=== PATIENT | male | born 1985 | race American Indian/Alaskan Native ===

== ENCOUNTER 2021-06-07 14:03 | Emergency (ER) | payer OTHER ==
[2021-06-07 17:02] VITALS: BP 122/68
[2021-06-07] MEDS ORDERED: IPRATROPIUM/ALBUTEROL SULFATE 3 ML AMPUL.NEB IH ONE (17:29)
[2021-06-07] MEDS ORDERED: methylPREDNISolone Sod Succinate 125 MG/2 ML INJ IV ONE (17:29)
--- NOTE | 2021-06-07 17:32 | Emergency Department Report ---
- General Chief Complaint: Dyspnea/Respdistress Stated Complaint: CHEST/THROAT TIGHTNESS Time Seen by Provider: 06/07/21 17:09 Source: patient Mode of arrival: Ambulatory Limitations: No Limitations - History of Present Illness Initial Comments: 36-year-old male with a history of tobacco use, GERD but no other significant past medical history presents to the ER today with complaints of cough and shortness of breath. Patient states that symptoms started last night. He describes a productive cough which seems to be worse when he exhales after taking a deep breath, he also reports associated shortness of breath, chest and throat tightness as well as wheezing. He reports rhinorrhea but no nasal congestion or sore throat. He denies any fever or chills. He denies history of pneumonia or bronchitis in the past. He denies any ill contacts or recent travel. He has not been vaccinated against COVID-19. MD Complaint: cough, nasal congestion, other (SOB, wheezing) -: Last night - Related Data Previous Rx's Medication Instructions Recorded Last Taken Type Albuterol Mdi (or & Nicu Only) 2 puff IH QID PRN #8.5 gram 06/07/21 Unknown Rx [ProAir HFA Inhaler] Benzonatate [Tessalon Perles] 100 mg PO Q8HR PRN #30 cap 06/07/21 Unknown Rx Cetirizine HCl [Zyrtec 10mg tab] 10 mg PO DAILY #30 06/07/21 Unknown Rx predniSONE [Deltasone] 50 mg PO QDAY #4 tab 06/07/21 Unknown Rx Allergies Allergy/AdvReac Type Severity Reaction Status Date / Time No Known Allergies Allergy Verified 06/07/21 17:49 ED Review of Systems ROS: Stated complaint: CHEST/THROAT TIGHTNESS Other details as noted in HPI Comment: All other systems reviewed and negative Constitutional: denies: chills, fever ENT: congestion Respiratory: cough, shortness of breath, wheezing Cardiovascular: other (Chest tightness). denies: chest pain, palpitations Gastrointestinal: denies: abdominal pain, nausea, diarrhea Genitourinary: denies: urgency, dysuria, frequency, hematuria, discharge, testicular pain, testicular mass Musculoskeletal: denies: back pain, joint swelling, arthralgia Skin: denies: rash, lesions, change in color, change in hair/nails, pruritus Neurological: denies: headache, weakness, numbness, paresthesias, confusion, abnormal gait, vertigo Psychiatric: denies: anxiety, depression, auditory hallucinations, visual hallucinations, homicidal thoughts, suicidal thoughts Hematological/Lymphatic: denies: easy bleeding, easy bruising, swollen glands ED Past Medical Hx - Social History Smoking Status: Current Every Day Smoker - Medications Home Medications: Home Medications Medication Instructions Recorded Confirmed Last Taken Type Albuterol Mdi (or & Nicu Only) 2 puff IH QID PRN #8.5 gram 06/07/21 Unknown Rx [ProAir HFA Inhaler] Benzonatate [Tessalon Perles] 100 mg PO Q8HR PRN #30 cap 06/07/21 Unknown Rx Cetirizine HCl [Zyrtec 10mg tab] 10 mg PO DAILY #30 06/07/21 Unknown Rx predniSONE [Deltasone] 50 mg PO QDAY #4 tab 06/07/21 Unknown Rx ED Physical Exam - General Limitations: No Limitations General appearance: alert, in no apparent distress - Head Head exam: Present: atraumatic, normocephalic, normal inspection - Eye Eye exam: Present: normal appearance, PERRL, EOMI Pupils: Present: normal accommodation - Neck Neck exam: Present: normal inspection, full ROM. Absent: meningismus - Respiratory Respiratory exam: Present: normal lung sounds bilaterally, wheezes (Diffuse expiratory wheezing), other (Intermittent coughing). Absent: respiratory distress, rales, rhonchi, stridor - Cardiovascular Cardiovascular Exam: Present: regular rate, normal rhythm, normal heart sounds - GI/Abdominal GI/Abdominal exam: Present: soft. Absent: distended, tenderness, guarding, rebound - Neurological Exam Neurological exam: Present: alert, oriented X3, CN II-XII intact, normal gait - Psychiatric Psychiatric exam: Present: normal affect, normal mood - Skin Skin exam: Present: intact ED Course Vital Signs 06/07/21 06/07/21 16:59 20:06 Temperature 98.6 F Pulse Rate 97 H 92 H Respiratory 18 17 Rate Blood Pressure 122/68 O2 Sat by Pulse 95 96 Oximetry ED Medical Decision Making - Radiology Data Radiology results: report reviewed Patient Name: MERCEDES PHILLIP Gender: Male Date of : 1985 Home Phone: Referring Provider: LACEY CASH Organization: [facility] Accession Number: [id number] Requested Date: June 07, 2021 17:29 Report Status: Final Requested Procedure: 1 Procedure Description: XR chest routine 2V Modality: XR Findings Reporting MD: Joaquín Corbin Dictation Time: June 07, 2021 16:52 [employer] Commerce Developer: Not available Teacher Hearing Impaired Date: CHEST 2 VIEWS INDICATION / CLINICAL INFORMATION: SOB/cough. COMPARISON: None available. FINDINGS: SUPPORT DEVICES: None. HEART / MEDIASTINUM: The heart size and pulmonary vasculature are normal. LUNGS / PLEURA: There is a small calcified granuloma in the left lung base. The lungs are otherwise clear. No pleural effusion. No pneumothorax. ADDITIONAL FINDINGS: No significant additional findings. IMPRESSION: No acute findings. Signer Name: Joaquín Corbin MD Signed: 06/07/2021 4:52 PM Workstation Name: [id number] - Medical Decision Making Patient reports feeling better after nebulizer treatment. His wheezing has improved after treatment. He is currently not in any respiratory distress. He is not toxic or ill-appearing. He is neurologically intact and his gait is normal. Repeat vital signs are stable. X-ray shows nothing acute. Discussed x-ray results with patient. Discussed suspected diagnosis with patient but recommends that he get outpatient COVID-19 test. Discussed treatment plan with patient. Patient expressed understanding for instructions and agree with plan. Patient was stable at time of discharge. - Differential Diagnosis Acute bronchitis, pneumonia, Covid Critical care attestation.: If time is entered above; I have spent that time in minutes in the direct care of this critically ill patient, excluding procedure time. ED Disposition Clinical Impression: Acute bronchitis Disposition: 01 HOME / SELF CARE / HOMELESS Is pt being admited?: No Does the pt Need Aspirin: No Condition: Stable Instructions: Acute Bronchitis, Adult, [id number], Acute Bronchitis (ED) Additional Instructions: I recommend that you get a COVID-19 test once at a local urgent care, pharmacy or drive-through clinic as this could be a cause of your symptoms. I recommend that you start the prednisone tomorrow, and use the albuterol MDI as prescribed. Take the Tessalon Perles to help with your cough and also the Zyrtec. Follow- up with your PCP. Return to the ER if your symptoms changes or worsens in any way. Prescriptions: predniSONE [Deltasone] 50 mg PO QDAY #4 tab Albuterol Mdi (or & Nicu Only) [ProAir HFA Inhaler] 2 puff IH QID PRN #8.5 gram PRN Reason: Shortness Of Breath Benzonatate [Tessalon Perles] 100 mg PO Q8HR PRN #30 cap PRN Reason: Cough Cetirizine HCl [Zyrtec 10mg tab] 10 mg PO DAILY #30 Referrals: RITIKA MAR MD [Staff Physician] - 3-5 Days Forms: Work/School Release Form(ED) Time of Disposition: 19:18
--- NOTE | 2021-06-07 23:53 | XRay Report ---
CHEST 2 VIEWS INDICATION / CLINICAL INFORMATION: SOB/cough. COMPARISON: None available. FINDINGS: SUPPORT DEVICES: None. HEART / MEDIASTINUM: The heart size and pulmonary vasculature are normal. LUNGS / PLEURA: There is a small calcified granuloma in the left lung base. The lungs are otherwise c lear. No pleural effusion. No pneumothorax. ADDITIONAL FINDINGS: No significant additional findings. IMPRESSION: No acute findings. Signer Name: Joaquín Corbin MD Signed: 06/07/2021 5:52 PM Workstation Name: [id number]
== END 2021-06-07 20:00 | disposition home or self-care (01) ==
LOC: ED 14:03
DX: J20.9 Acute bronchitis, unspecified (principal); F17.200 Nicotine dependence, unspecified, uncomplicated
CPT/HCPCS: 71046; 94640; 96374; 99283; J2930